=== PATIENT | female | born 1990 | race American Indian/Alaskan Native ===

== ENCOUNTER 2019-03-09 05:01 | Emergency (ER) | payer SELFPAY ==
[2019-03-09 05:05] VITALS: BP 127/94
--- NOTE | 2019-03-09 05:57 | Emergency Department Report ---
ED ENT HPI - General Chief complaint: Dental/Oral Stated complaint: BROKEN TOOTH/PAIN Time Seen by Provider: 03/09/19 05:50 Source: patient Mode of arrival: Ambulatory Limitations: No Limitations - History of Present Illness Initial comments: Patient is a 28-year-old female presents emergency room with complaints of left lower dental pain that began yesterday. States that she cracked her tooth approximately a year ago. She states that she was recommended to have it pulled out a year ago by a dentist but did not follow-up. Denies any fever, vomiting, facial swelling. denies any past medical history. ED Dental HPI - General Chief complaint: Dental/Oral Stated complaint: BROKEN TOOTH/PAIN Time Seen by Provider: 03/09/19 05:50 Source: patient Mode of arrival: Ambulatory Limitations: No Limitations ED Review of Systems ROS: Stated complaint: BROKEN TOOTH/PAIN Other details as noted in HPI Comment: All other systems reviewed and negative ED Past Medical Hx - Past Medical History Previous Medical History?: Yes Hx Sickle Cell Disease: Yes - Surgical History Past Surgical History?: No - Social History Smoking Status: Current Every Day Smoker Substance Use Type: Marijuana ED Physical Exam - General Limitations: No Limitations General appearance: alert, in no apparent distress - Head Head exam: Present: atraumatic, normocephalic - Eye Eye exam: Present: normal appearance - ENT ENT exam: Present: mucous membranes moist, other (cracked tooth present at tooth number 15, no surrounding edema, no sign of dental abscess, no facial cellulitis, uvula is midline, no uvular edema) - Neurological Exam Neurological exam: Present: alert, oriented X3 - Psychiatric Psychiatric exam: Present: normal affect, normal mood - Skin Skin exam: Present: warm, dry, intact ED Course Vital Signs 03/09/19 05:04 Temperature 98.1 F Pulse Rate 72 Respiratory 18 Rate Blood Pressure 127/94 O2 Sat by Pulse 96 Oximetry ED Medical Decision Making - Medical Decision Making Patient is a 28-year-old female presents emergency room with complaints of left lower dental pain that began yesterday. States that she cracked her tooth approximately a year ago. She states that she was recommended to have it pulled out a year ago by a dentist but did not follow-up. Denies any fever, vomiting, facial swelling. denies any past medical history. vitals are normal pt has a cracked tooth, no signs of dental infection or abscess, no facial cellulitis pt is presenting with a non emergent medical condition pt given list of community dental clinics advised pt to Take Tylenol or ibuprofen for any discomfort. Follow-up with a dentist in the next 3 days for permanent solution of your dental pain. given list of community dental clinics. Return to the emergency room for any new or worsening symptoms. - Differential Diagnosis dental abscess, dental infection, gingivitis, peridonitis, dental caries Critical care attestation.: If time is entered above; I have spent that time in minutes in the direct care of this critically ill patient, excluding procedure time. ED Disposition Clinical Impression: Cracked tooth, Dental caries Disposition: MED SCREENING EXAM-LEFT Is pt being admited?: No Does the pt Need Aspirin: No Condition: Stable Instructions: Dental Caries (ED), Toothache (ED) Additional Instructions: Take Tylenol or ibuprofen for any discomfort. Follow-up with a dentist in the next 3 days for permanent solution of your dental pain. given list of community dental clinics. Return to the emergency room for any new or worsening symptoms. Referrals: [facility] [Outside] - 2-3 Days Time of Disposition: 05:55 Print Language: TURKISH
== END 2019-03-09 05:58 | disposition left against medical advice (07) ==
LOC: ED 05:01
DX: K02.9 Dental caries, unspecified (principal); K03.81 Cracked tooth; F17.200 Nicotine dependence, unspecified, uncomplicated; F12.10 Cannabis abuse, uncomplicated

== ENCOUNTER 2020-10-23 12:25 | Emergency (ER) | payer SELFPAY ==
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
== END 2020-10-23 13:45 | disposition home or self-care (01) ==
LOC: ED 12:25
CPT/HCPCS: 99281